=== PATIENT | female | born 1965 | race Two or more races ===

== ENCOUNTER 2025-05-02 11:05 | Inpatient (IN) | payer OTHER ==
[~2025-05-02] VITALS: Ht 30.5 cm; Wt 88.9 kg
[2025-05-02] MEDS ORDERED: SYNTHROID100 MCG PO (11:42)
[2025-05-02] MEDS ORDERED: METFORMIN HCL1000 M2 PO (11:43)
[2025-05-02] MEDS ORDERED: COZAAR100 MG PO (11:43)
[2025-05-02] MEDS ORDERED: ZETIA10 MG PO (11:43)
[2025-05-09] MEDS ORDERED: METRONIDAZOLE/SODIUM CHLORIDE 500 MG/100 ML PIGGYBACK IV ONE (08:17)
[2025-05-09] MEDS ORDERED: CEFTRIAXONE SODIUM 2,000 MG VIAL ONE (08:17)
[2025-05-09] MEDS ORDERED: CHLORHEXIDINE GLUCONATE 120 ML BOTTLE TOP ONE (11:00)
[2025-05-09] MEDS ORDERED: SUGAMMADEX SODIUM 200 MG/2 ML VIAL IV ONE (13:45)
[2025-05-09] MEDS ORDERED: MORPHINE SULFATE 4 MG/ML VIAL IV ONE ×2 (13:55→14:45)
[2025-05-09] MEDS ORDERED: MORPHINE SULFATE 4 MG/ML CARTRIDGE IV PRN (14:15)
[2025-05-09] MEDS ORDERED: OxyCODONE HCL 5 MG TABLET (ROXICODONE) PO PRN (14:15)
[2025-05-09] MEDS ORDERED: RINGERS SOLUTION,LACTATED 1,000 ML IV SCH (14:15)
[2025-05-09] MEDS ORDERED: ONDANSETRON HCL 2 MG/ML VIAL IV PRN (14:15)
[2025-05-09 16:20] LABS: BASO % 0.3 % (0.1-1.2); HEMATOCRIT 37.9 % (34.1-44.9); HEMOGLOBIN 12.6 g/dL (11.2-15.7); LYMPH # 0.65 (1.18-3.74); LYMPH % 4.5 % (19.3-53.1); MONO # 0.89 (0.24-0.82); MONO % 6.1 % (4.7-12.5); NEUT # 12.88 (1.56-6.13); NEUT % 88.8 % (34.0-71.1); PLATELET COUNT 350 K/uL (163-369); RED BLOOD COUNT 4.34 M/uL (3.93-5.22); RED CELL DISTRIBUTION WIDTH 13.2 % (11.6-14.4)
[2025-05-09] MEDS ORDERED: SIMETHICONE 125 MG CAPSULE PO SCH (17:00)
[2025-05-09] MEDS ORDERED: POLYETHYLENE GLYCOL 3350 17 GM BLIST.PACK PO SCH (17:00)
[2025-05-09] MEDS ORDERED: CELECOXIB 200 MG CAPSULE PO SCH (17:00)
[2025-05-09] MEDS ORDERED: GABAPENTIN 300 MG CAPSULE PO SCH (17:00)
[2025-05-09] MEDS ORDERED: HYOSCYAMINE SULFATE 0.125 MG TAB.SUBL SL SCH (17:00)
[2025-05-09] MEDS ORDERED: METOCLOPRAMIDE HCL 5 MG/ML VIAL IV SCH (17:00)
[2025-05-09] MEDS ORDERED: DEXTROSE 50 % IN WATER 0.5 G/ML VIAL IV PRN (17:15)
[2025-05-09] MEDS ORDERED: INSULIN LISPRO 1,000 UNIT/10 ML UNITS SUBCUTANEO PRN (17:15)
[2025-05-09] MEDS ORDERED: ENALAPRILAT DIHYDRATE 1.25 MG/ML VIAL IV PRN (17:15)
[2025-05-09] MEDS ORDERED: METOCLOPRAMIDE HCL 5 MG/ML VIAL ONE (17:28)
[2025-05-09 18:26] VITALS: BP 122/84; O2SAT 97
[2025-05-09] MEDS ORDERED: ACETAMINOPHEN 500 MG GEL..CAP PO SCH (20:00)
[2025-05-09] MEDS ORDERED: FAMOTIDINE/PF 20 MG/2 ML VIAL IV PUSH SCH (21:00)
[2025-05-09 23:56] VITALS: O2SAT 97
[2025-05-10] VITALS (8 sets, daily range): BP systolic 100–112; BP diastolic 55–69; O2SAT 81–100
[2025-05-10] MEDS ORDERED: SYNTHROID 100 MCG PO SCH (06:00)
[2025-05-10 06:15] LABS: BASO % 0.8 % (0.1-1.2); EOS # 0.04 (0.04-0.54); EOS % 0.3 % (0.7-7.0); HEMATOCRIT 34.4 % (34.1-44.9); HEMOGLOBIN 11.5 g/dL (11.2-15.7); LYMPH # 1.07 (1.18-3.74); LYMPH % 8.9 % (19.3-53.1); MONO # 0.83 (0.24-0.82); MONO % 6.9 % (4.7-12.5); NEUT # 9.89 (1.56-6.13); NEUT % 82.8 % (34.0-71.1); PLATELET COUNT 266 K/uL (163-369); RED BLOOD COUNT 3.96 M/uL (3.93-5.22)
[2025-05-10 06:51] LABS: ALBUMIN 2.9 gm/dL (3.4-5.0); CALCIUM 8.6 mg/dL (8.5-10.1); CREATININE SERUM 0.47 mg/dL (0.55-1.02); GFR 136.58; MAGNESIUM 1.7 mg/dL (1.8-2.4); PHOSPHOROUS 3.2 mg/dL (2.5-4.9); POTASSIUM 3.76 mEq/L (3.5-5.1)
[2025-05-10] MEDS ORDERED: LOSARTAN POTASSIUM 100 MG TABLET PO SCH (09:00)
[2025-05-10] MEDS ORDERED: LACTULOSE 20 G/30 ML BLIST.PACK PO SCH (09:00)
[2025-05-10] MEDS ORDERED: LACTOBACILLUS ACIDOPHILUS 1 CAP CAP PO SCH (09:00)
[2025-05-10] MEDS ORDERED: DEXTROSE 50 % IN WATER 0.5 G/ML DISP.SYRIN IV PRN (09:45)
[2025-05-10] MEDS ORDERED: INSULIN LISPRO 1,000 UNIT/10 ML UNITS SUBCUTANEO PRN (09:45)
[2025-05-10] MEDS ORDERED: MAGNESIUM SULFATE IN WATER 50 ML IV NR (11:00)
[2025-05-10] MEDS ORDERED: ENOXAPARIN SODIUM 40 MG/0.4 ML SYRINGE SUBCUTANEO SCH (17:00)
[2025-05-11] VITALS (8 sets, daily range): BP systolic 100–127; BP diastolic 54–57; O2SAT 90–100
[2025-05-11 07:51] LABS: BASO % 0.5 % (0.1-1.2); EOS # 0.51 (0.04-0.54); EOS % 5.2 % (0.7-7.0); HEMATOCRIT 33.6 % (34.1-44.9); HEMOGLOBIN 10.9 g/dL (11.2-15.7); LYMPH # 1.12 (1.18-3.74); LYMPH % 11.4 % (19.3-53.1); MEAN CORPUSCULAR HEMOGLOBIN 28.4 pg (25.6-32.2); MONO # 0.45 (0.24-0.82); MONO % 4.6 % (4.7-12.5); NEUT # 7.69 (1.56-6.13); PLATELET COUNT 244 K/uL (163-369); RED BLOOD COUNT 3.84 M/uL (3.93-5.22); RED CELL DISTRIBUTION WIDTH 13.3 % (11.6-14.4)
[2025-05-11 08:26] LABS: CALCIUM 8.7 mg/dL (8.5-10.1); CREATININE SERUM 0.46 mg/dL (0.55-1.02); GFR 140.01; PHOSPHOROUS 2.5 mg/dL (2.5-4.9); POTASSIUM 3.87 mEq/L (3.5-5.1)
[2025-05-11] MEDS ORDERED: ENOXAPARIN SODIUM 40 MG/0.4 ML SYRINGE SUBCUTANEO SCH (09:00)
[2025-05-12] VITALS (9 sets, daily range): BP systolic 121–136; BP diastolic 66–80; O2SAT 90–99
[2025-05-12] MEDS ORDERED: PIPERACILLIN/TAZOBACTAM SODIUM 3.375 GM in 0.9 % SODIUM CHLORIDE 100 ML IV SCH (18:00)
[2025-05-13 01:28] VITALS: BP 121/77; O2SAT 100
[2025-05-13 01:43] VITALS: O2SAT 90
[2025-05-13 05:50] VITALS: O2SAT 90
[2025-05-13 08:28] VITALS: BP 136/87; O2SAT 98
[2025-05-13] MEDS ORDERED: PROTONIX40 MG PO (12:23)
[2025-05-13] MEDS ORDERED: NEURONTIN300 MG PO (12:23)
[2025-05-13] MEDS ORDERED: INTESTINEX680 M1 PO (12:23)
[2025-05-13] MEDS ORDERED: AMOX-CLAV 875-1 EACH PO (12:23)
[2025-05-13] MEDS ORDERED: CELECOXIB200 MG PO (12:23)
== END 2025-05-13 22:10 | disposition home or self-care (01) | DRG 331 ==
LOC: O/R 05-09 06:28 → SURG 05-09 10:45 → SURH 05-09 14:59
PROVIDERS: Internal Medicine Geriatric Medicine; ADMIT Colon & Rectal Surgery; ATTEND Colon & Rectal Surgery
PROC: 0DBP4ZZ Excision of Rectum, Percutaneous Endoscopic Approach (ICD-10-PCS; 2025-05-09)
PROC: 0DTN4ZZ Resection of Sigmoid Colon, Percutaneous Endoscopic Approach (ICD-10-PCS; 2025-05-09)
PROC: 0DNW4ZZ Release Peritoneum, Percutaneous Endoscopic Approach (ICD-10-PCS; 2025-05-09)
PROC: 0WQF4ZZ Repair Abdominal Wall, Percutaneous Endoscopic Approach (ICD-10-PCS; 2025-05-09)
PROC: 0KXL0ZZ Transfer Left Abdomen Muscle, Open Approach (ICD-10-PCS; 2025-05-09)
PROC: 0KXK0ZZ Transfer Right Abdomen Muscle, Open Approach (ICD-10-PCS; 2025-05-09)
PROC: 0DBE4ZZ Excision of Large Intestine, Percutaneous Endoscopic Approach (ICD-10-PCS; 2025-05-09)
PROC: 0DJD8ZZ Inspection of Lower Intestinal Tract, Via Natural or Artificial Opening Endoscopic (ICD-10-PCS; 2025-05-09)
PROC: 4A12X4Z Monitoring of Cardiac Electrical Activity, External Approach (ICD-10-PCS; 2025-05-09)
PROC: 0DQ84ZZ Repair Small Intestine, Percutaneous Endoscopic Approach (ICD-10-PCS; principal; 2025-05-09 10:45)
DX: K57.20 Diverticulitis of large intestine with perforation and abscess without bleeding (principal); K43.2 Incisional hernia without obstruction or gangrene; N73.6 Female pelvic peritoneal adhesions (postinfective); N99.4 Postprocedural pelvic peritoneal adhesions; E86.0 Dehydration; G47.30 Sleep apnea, unspecified

== ENCOUNTER 2025-05-24 09:11 | Emergency (ER) | payer OTHER ==
[~2025-05-24] VITALS: Ht 154.9 cm; Wt 86.2 kg
[~2025-05-24 09:11] MED LIST: AMOX-CLAV 875-1 EACH PO; CELECOXIB200 MG PO; COZAAR100 MG PO; INTESTINEX680 M1 PO; METFORMIN HCL1000 M2 PO; NEURONTIN300 MG PO; PROTONIX40 MG PO; SYNTHROID100 MCG PO; ZETIA10 MG PO
[2025-05-24 10:17] LABS: BASO % 1.4 % (0.1-1.2); EOS # 0.43 (0.04-0.54); EOS % 5.5 % (0.7-7.0); LYMPH # 1.96 (1.18-3.74); LYMPH % 24.9 % (19.3-53.1); MEAN PLATELET VOLUME 9.50 fl (9.4-12.4); MONO # 0.50 (0.24-0.82); MONO % 6.4 % (4.7-12.5); NEUT # 4.82 (1.56-6.13); NEUT % 61.3 % (34.0-71.1); RED CELL DISTRIBUTION WIDTH 12.9 % (11.6-14.4)
[2025-05-24 10:48] LABS: URINE APPEARANCE Clear; URINE BILIRRUBIN Negative (NEGATIVE); URINE BLOOD Negative; URINE COLOR Yellow; URINE GLUCOSE Negative (NEGATIVE); URINE KETONE Negative (NEGATIVE); URINE LEUKOCYTE Small; URINE NITRATE Negative; URINE PROTEIN Negative (NEGATIVE); URINE UROBILINOGEN 0.2 E.U./dl
[2025-05-24 10:49] LABS: URINE BACTERIA 15.5 uL (0.0-1933); URINE EPITHELIAL CELLS 60.9 uL (0.0-38.8); URINE RBC 34.4 uL (0.0-20.8); URINE WBC 24.1 uL (0.0-23.2)
[2025-05-24 11:07] LABS: URINE CAST 0.14 uL (0.0-1.40)
[2025-05-24 11:32] LABS: BUN CREA RATIO 24.0 (7.0-25.0); CREATININE SERUM 0.5 mg/dL (0.55-1.02); GFR 127.17; GLUCOSE FASTING 114.0 mg/dL (65-100); OSMOLALITY SERUM 284.0 MOSM/KG (275-295)
== END 2025-05-24 15:49 | disposition home or self-care (01) ==
LOC: ER 09:16
PROVIDERS: Emergency Medicine
DX: R10.9 Unspecified abdominal pain (principal); K57.32 Diverticulitis of large intestine without perforation or abscess without bleeding; Z93.3 Colostomy status; E03.8 Other specified hypothyroidism; I10 Essential (primary) hypertension; E11.9 Type 2 diabetes mellitus without complications; Z79.84 Long term (current) use of oral hypoglycemic drugs